=== PATIENT | male | born 1990 | race Caucasian/White ===

== ENCOUNTER 2020-09-30 19:21 | Emergency (ER) | payer OTHER, SELFPAY ==
[2020-09-30 19:35] VITALS: BP 158/82; PULSE 105; RESP 18; TEMP 36.6; O2SAT 99; BMI 41.3
== END 2020-09-30 22:00 | disposition left against medical advice (07) ==
PROVIDERS: Emergency Provider Emergency Medicine
CPT/HCPCS: 99281